=== PATIENT | female | born 1970 | race Caucasian/White ===

== ENCOUNTER → 2016-09-30 | Outpatient (REF) | payer OTHER | LOC: M LAB REF 09:30 | PROVIDERS: ATTEND Physician Assistant | DX: J02.9 Acute pharyngitis, unspecified (principal) ==

== ENCOUNTER → 2016-10-02 | Outpatient (REF) | payer OTHER ==
[2016-10-02 12:48] LABS: BASO % 0.4 % (0.0-1.0); EOS % 0.6 % (0.0-3.0); LARGE UNSTAINED CELL # 0.1 K/mm3 (0.0-0.4); LARGE UNSTAINED CELL % 1.4 % (0.0-4.0); LYMPH % 26.6 % (24.0-44.0); MEAN CORPUSCULAR HEMOGLOBIN 32.1 pg (27.0-33.0); MEAN CORPUSCULAR HGB CONC 34.7 g/dl (32.0-36.5); MEAN CORPUSCULAR VOLUME 92.4 fl (80.0-96.0); MONO # 0.7 K/mm3 (0.0-0.8); NEUTROPHILS # 4.3 K/mm3 (1.8-7.7); NEUTROPHILS % 60.9 % (36.0-66.0); PLATELET COUNT, AUTOMATED 218 k/mm3 (150-450); RED CELL DISTRIBUTION WIDTH 12.5 % (11.5-14.5)
== END ==
LOC: M LABDRWAD 12:18
PROVIDERS: ATTEND Physician Assistant
DX: J02.9 Acute pharyngitis, unspecified (principal)

== ENCOUNTER 2018-03-18 04:58 | Emergency (ER) | payer OTHER | END 2018-03-18 07:32 | disposition home or self-care (01) | LOC: M ED 04:58 | DX: M79.661 Pain in right lower leg (principal); I10 Essential (primary) hypertension; Z79.899 Other long term (current) drug therapy; Z91.018 Allergy to other foods | CPT/HCPCS: 73564 ==

== ENCOUNTER 2018-10-19 14:27 | Emergency (ER) | payer OTHER ==
[~2018-10-19] VITALS: Ht 167.6 cm; Wt 90.0 kg
[~2018-10-19 14:27] MED LIST: IBUP1TAB7 PO; LISINOPRIL-HCTZ PO; MOTR200T44 PO; POTA20TA6; TUMERIC; VITA-122 PO
[2018-10-19] MEDS ORDERED: ZANT150T40 PO (14:47)
[2018-10-19] MEDS ORDERED: NS 1,000 ML IV ONE (15:15)
[2018-10-19] MEDS ORDERED: ONDANSETRON 4MG/2ML VIAL (J2405) IV ONE (15:15)
[2018-10-19 15:17] LABS: BASO % 0.5 % (0.0-1.0); EOS # 0.1 10^3/uL (0.0-0.50); EOS % 1.1 % (0.0-3.0); HEMATOCRIT 36.2 % (36.0-47.0); HEMOGLOBIN 12.1 g/dl (12.0-15.5); LYMPH # 3.1 10^3/uL (1.5-4.5); LYMPH % 48.2 % (24.0-44.0); MEAN CORPUSCULAR HEMOGLOBIN 30.3 pg (27.0-33.0); MEAN CORPUSCULAR HGB CONC 33.4 g/dl (32.0-36.5); MEAN CORPUSCULAR VOLUME 90.7 fl (80.0-96.0); MONO # 0.6 10^3/uL (0.0-0.8); MONO % 8.7 % (0.0-5.0); NEUTROPHILS # 2.7 10^3/uL (1.8-7.7); NEUTROPHILS % 41.3 % (36.0-66.0); PLATELET COUNT, AUTOMATED 242 10^3/uL (150-450); RED BLOOD COUNT 3.99 10^6/uL (4.00-5.40); WHITE BLOOD COUNT 6.5 10^3/uL (4.0-10.0)
[2018-10-19 15:28] LABS: ALBUMIN 4.1 GM/DL (3.2-5.2); ALT/SGPT 17 U/L (12-78); BILIRUBIN,DIRECT 0.1 MG/DL (0.0-0.2); BILIRUBIN,TOTAL 0.4 MG/DL (0.2-1.0); BLOOD UREA NITROGEN 9 MG/DL (7-18); CALCIUM LEVEL 9.5 MG/DL (8.5-10.1); CARBON DIOXIDE LEVEL 30 MEQ/L (21-32); CHLORIDE LEVEL 99 MEQ/L (98-107); CREATININE FOR GFR 0.66 MG/DL (0.55-1.30); GLOMERULAR FILTRATION RATE > 60.0 (>58); GLUCOSE, FASTING 99 MG/DL (70-100); LIPASE 110 U/L (73-393); POTASSIUM SERUM 4.2 MEQ/L (3.5-5.1); SODIUM LEVEL 137 MEQ/L (136-145); TOTAL PROTEIN 8.2 GM/DL (6.4-8.2)
--- NOTE | 2018-10-19 15:46 | REP ---
Clinical: Right flank pain. Technique: Axial noncontrast images from the lung bases to the pubic symphysis eighth coronal and sagittal re-formations. Comparison: None. Findings: Evaluation of the urinary check system demonstrates 9 cm left renal hypodensity likely representing cyst. The kidneys/ureters and bladder are otherwise normal in appearance for noncontrast evaluation. There is no evidence for hydroureteronephrosis, perinephric stranding, intrarenal or obstructing ureteral calculi. Liver, spleen, pancreas, and bilateral adrenal glands are normal for noncontrast evaluation. Evidence of prior cholecystectomy. The enteric system is without obstruction or acute inflammatory process. Scattered sigmoid diverticula noted without acute diverticulitis. Normal terminal ileum and appendix identified in the right lower quadrant without evidence for acute appendicitis. Pelvis demonstrates enlarged heterogeneous myomatous uterus. The bladder is grossly unremarkable. No pelvic fluid or ascites. No free air. No adenopathy. Lung bases are clear. Musculoskeletal structures are intact. Impression: 1. 9 cm left renal hypodensity likely representing cyst. No further urinary tract pathology is appreciated. 2. Enlarged heterogeneous myomatous uterus. 3. Scattered sigmoid diverticula without acute diverticulitis. 4. No further acute abdominopelvic pathology appreciated. Electronically Signed by Gray Casey MD 10/19/2018 03:37 P
[2018-10-19] MEDS ORDERED: KETOROLAC 30 MG/ML VIAL (J1885) IV ONE (16:00)
[2018-10-19 16:09] LABS: CK-MB VALUE MASS < 1.0 NG/ML (<3.6); CPK CREATINE PHOSPHOKINASE 81 U/L (26-192); MB/CK RELATIVE INDEX 1.23 (< OR =4); TROPONIN I < 0.02 NG/ML (< 0.10)
--- NOTE | 2018-10-19 16:52 | ECGEPIP ---
[facility] - ED Test Date: 2018-10-19 Pat Name: WES ALVARADO Department: Room: - Gender: Female Medical Oncology Physician: ct : 1970 Requested By: ASIA Serrato PA-C Order Number: [id number] Reading MD: Cecilia Zhang Measurements Intervals [place] Rate: 66 P: 46 MS: 199 QRS: QRSD: 102 T: 3 QT: 438 QTc: 461 Interpretive Statements SINUS RHYTHM INCOMPLETE RIGHT BUNDLE BRANCH BLOCK NONSPECIFIC T-WAVE ABNORMALITY No prior Electronically Signed on 10-19-2018 16:51:38 EDT by Cecilia Zhang
[2018-10-19 18:29] VITALS: BP 130/79
[2018-10-19 18:38] LABS: CK-MB VALUE MASS < 1.0 NG/ML (<3.6); CPK CREATINE PHOSPHOKINASE 67 U/L (26-192); MB/CK RELATIVE INDEX 1.49 (< OR =4); TROPONIN I < 0.02 NG/ML (< 0.10)
--- NOTE | 2018-10-21 13:42 | ED PDOC ---
Post-Departure Follow-Up snehal carreno faxed formal report of ct abd/p for fu Fatoumata Hull MD Oct 21, 2018 13:42
== END 2018-10-19 18:54 | disposition home or self-care (01) ==
LOC: M ED 14:27
DX: N85.2 Hypertrophy of uterus (principal); N28.1 Cyst of kidney, acquired; K57.30 Diverticulosis of large intestine without perforation or abscess without bleeding; I10 Essential (primary) hypertension; R32 Unspecified urinary incontinence; K44.9 Diaphragmatic hernia without obstruction or gangrene; K22.8 Other specified diseases of esophagus; Z91.018 Allergy to other foods; Z79.899 Other long term (current) drug therapy
CPT/HCPCS: 74176; 80048; 80076; 81001; 82550; 82553; 83690; 84484; 85025; 93005; 96361; 96374; 96375; 99284; J1885; J2405

== ENCOUNTER → 2018-12-31 | Outpatient (CLI) | payer OTHER ==
[~2018-12-31] MED LIST changes: +ZANT150T40 PO
--- NOTE | 2019-01-01 07:33 | REP ---
PELVIC ULTRASOUND: Real-time sonographic evaluation of the pelvis is performed utilizing transabdominal technique. The bladder measures 5.5 x 4.1 cm. The uterus is enlarged 13.0 x 7.2 x 9.9 cm. Echotexture diffusely is heterogenous. There are multiple fibroids in the myometrium. The largest are in the fundus in the midline 3.4 x 4.0 x 3.8 cm and in the right fundus 6.5 x 4.8 x 5.9 cm. The endometrial thickness is 7 mm. No endometrial fluid collection is seen. Ovaries are normal in size and echotexture right ovary measuring 3.4 x 1.2 x 2.4 cm and the left ovary 4.1 x 2.1 x 2.2 cm. There is no adnexal mass or free fluid. There is no evidence of ovarian torsion with duplex Doppler evaluation. IMPRESSION: Enlarged fibroid uterus. The largest fibroids are in the fundus, one in the midline measuring 4 cm maximally and the other on the right within the fundus 6.5 cm in maximum diameter. Endometrial thickness 7 mm. Electronically Signed by Manolo Morales MD 01/02/2019 07:58 A
== END ==
LOC: M RAD 17:00
PROVIDERS: ATTEND Obstetrics & Gynecology
DX: D25.9 Leiomyoma of uterus, unspecified (principal)

== ENCOUNTER → 2019-02-07 | Outpatient (REF) | payer OTHER | LOC: M LAB REF 15:23 | PROVIDERS: ATTEND Specialist | DX: H60.541 Acute eczematoid otitis externa, right ear (principal) ==

== ENCOUNTER 2019-04-09 05:35 | Day surgery (SDC) | payer OTHER ==
[~2019-04-09] VITALS: Ht 167.6 cm; Wt 93.6 kg
[2019-04-09] VITALS (9 sets, daily range): BP systolic 124–142; BP diastolic 58–88
[~2019-04-09 05:35] MED LIST changes: +D-3-50003 PO; +LISI20TA20 PO; +MULTTAB86 PO; +PEPC40TA12 PO; -POTA20TA6; +POTA20TA6 PO; -TUMERIC; +TUMERIC PO
[2019-04-09] MEDS ORDERED: ceFAZolin SOD 2 GM in IV 1 EA IV ONE (06:00)
[2019-04-09] MEDS ORDERED: LR 1,000 ML IV ONE (06:00)
[2019-04-09 06:03] LABS: HEMATOCRIT 39.1 % (36.0-47.0); HEMOGLOBIN 12.7 g/dl (12.0-15.5); MEAN CORPUSCULAR HGB CONC 32.5 g/dl (32.0-36.5); MEAN CORPUSCULAR VOLUME 92.4 fl (80.0-96.0); PLATELET COUNT, AUTOMATED 245 10^3/uL (150-450); RED BLOOD COUNT 4.23 10^6/uL (4.00-5.40); WHITE BLOOD COUNT 6.6 10^3/uL (4.0-10.0)
[2019-04-09] MEDS ORDERED: HYDROmorphone HCL 2 MG/ML 1ML VIAL (J1170) As Ordered ONE (07:01)
[2019-04-09] MEDS ORDERED: KETOROLAC 60 MG/2 ML VIAL (J1885) As Ordered ONE (07:01)
[2019-04-09] MEDS ORDERED: dexameTHASONE 4 MG/ML 1ML VIAL (J1100) As Ordered ONE (07:01)
[2019-04-09] MEDS ORDERED: ACETAMINOPHEN 1000MG 100ML IV BTL (OFIRMEV) (J0131 PER 10MG) As Ordered ONE (07:01)
[2019-04-09] MEDS ORDERED: PROPOFOL 200 MG/20 ML VIAL As Ordered ONE (07:01)
[2019-04-09] MEDS ORDERED: ONDANSETRON 4MG/2ML VIAL (J2405) As Ordered ONE (07:01)
[2019-04-09] MEDS ORDERED: LIDOCAINE 2% INJ 100 MG/5 ML SDV (FOR ANES.) As Ordered ONE (07:01)
[2019-04-09] MEDS ORDERED: ROCURONIUM BROMIDE 50 MG/5 ML VIAL As Ordered ONE (07:01)
[2019-04-09] MEDS ORDERED: MIDAZOLAM INJ 2 MG/2 ML VIAL (J2250) As Ordered ONE (07:02)
[2019-04-09] MEDS ORDERED: fentaNYL 100 MCG/2 ML INJECTION (J3010) As Ordered ONE (07:02)
[2019-04-09] MEDS ORDERED: LIDOCAINE W/EPINEPHRINE 1% 20ML VIAL As Ordered ONE (07:09)
[2019-04-09] MEDS ORDERED: METHYLENE BLUE 0.5% (5MG/ML) 10 ML AMP (PROVAYBLUE)(Q9968 PER 1MG) As Ordered ONE (07:09)
[2019-04-09] MEDS ORDERED: BUPIVACAINE HCL 0.25% 30 ML VIAL As Ordered ONE (07:09)
[2019-04-09] MEDS ORDERED: SUGAMMADEX SODIUM 500 MG/5 ML VIAL (BRIDION) As Ordered ONE (07:09)
[2019-04-09] MEDS ORDERED: ESMOLOL INJ 100MG/10ML VIAL As Ordered ONE (07:52)
[2019-04-09] MEDS ORDERED: LABETALOL HCL 100 MG/20 ML VIAL As Ordered ONE (09:18)
[2019-04-09] MEDS ORDERED: fentaNYL 100 MCG/2 ML INJECTION (J3010) IV PRN (11:30)
[2019-04-09] MEDS ORDERED: METOCLOPRAMIDE INJ 10MG/2ML VIAL (J2765) IV PRN (11:30)
[2019-04-09] MEDS ORDERED: MORPHINE 4 MG/ML 1ML VIAL/SYRINGE (J2270) IV PRN (11:30)
[2019-04-09] MEDS ORDERED: ONDANSETRON 4MG/2ML VIAL (J2405) IV PRN (11:30)
[2019-04-09] MEDS ORDERED: LR 1,000 ML IV SCH ×2 (11:30)
[2019-04-09] MEDS ORDERED: PROMETHAZINE INJ 25 MG/ML VIAL (J2550) IV PRN (11:30)
[2019-04-09] MEDS ORDERED: HYDROMORPHONE HCL 0.5 MG/ 0.5 ML SYRINGE (J1170 PER 1) IV PRN (11:30)
[2019-04-09] MEDS ORDERED: oxyCODONE 5MG TAB PO PRN (11:30)
[2019-04-09] MEDS ORDERED: PERCOCET 5MG/325MG TAB PO PRN (11:30)
[2019-04-09] MEDS: KETOROLAC 30 MG/ML VIAL (J1885) IV SCH ×2 (17:09→23:18)
[2019-04-10] VITALS: BP 137/72
[2019-04-10 04:00] VITALS: BP 122/68
[2019-04-10] MEDS: KETOROLAC 30 MG/ML VIAL (J1885) IV SCH ×2 (05:19→11:03)
[2019-04-10 06:39] LABS: HEMATOCRIT 32.6 % (36.0-47.0); MEAN CORPUSCULAR HEMOGLOBIN 30.5 pg (27.0-33.0); MEAN CORPUSCULAR HGB CONC 32.8 g/dl (32.0-36.5); MEAN CORPUSCULAR VOLUME 92.9 fl (80.0-96.0); PLATELET COUNT, AUTOMATED 207 10^3/uL (150-450); RED BLOOD COUNT 3.51 10^6/uL (4.00-5.40); WHITE BLOOD COUNT 13.9 10^3/uL (4.0-10.0)
[2019-04-10 06:41] LABS: HEMOGLOBIN 10.7 g/dl (12.0-15.5)
[2019-04-10 07:50] VITALS: BP 133/75
[2019-04-10 08:01] VITALS: BP 133/75
[2019-04-10] MEDS: PERCOCET 5MG/325MG TAB PO PRN ×2 (08:02→13:05)
[2019-04-10] MEDS ORDERED: hydroCHLOROthiazide 25 MG TAB PO SCH (09:00)
[2019-04-10] MEDS ORDERED: lisinopriL 20 MG TAB PO SCH (09:00)
--- NOTE | 2019-04-10 10:39 | ROOPDOC ---
[facility] Report Of Operation Report of Operation DATE OF PROCEDURE: 04/09/2019 PREOPERATIVE DIAGNOSES: 1. Fibroid uterus. 2. Abnormal uterine bleeding. 3. Genuine stress urinary incontinence POSTOPERATIVE DIAGNOSES: 1. Fibroid uterus. 2. Abnormal uterine bleeding. 3. Genuine stress urinary incontinence PROCEDURES PERFORMED: 1. Robotic assisted laparoscopic hysterectomy. 2. Bilateral salpingectomy. 3. Tension-free transvaginal tape obturator approach 3. Cystoscopy. SURGEON: Aubrie Ornelas MD DIRECTOR AUDIENCE MARKETING: TIM Hendricks M.D. ANESTHESIA: General endotracheal anesthesia. ESTIMATED BLOOD LOSS: 425 mL. INTRAVENOUS FLUIDS: 1300 mL of Lactated Ringer's solution. URINE OUTPUT: 200 mL. PREOPERATIVE ANTIBIOTICS: 2 grams of Ancef. OPERATIVE FINDINGS: Patient with markedly enlarged fibroid uterus. Normal appearing bilateral adnexa. Cystoscopic findings show normal bladder mucosa, bilateral jets were observed, no foreign objects were seen. DESCRIPTION OF OPERATION: After informed consent was obtained and written consent was reviewed, the patient brought to the operating room where she was placed under general endotracheal anesthesia. She was then placed in lithotomy position and was prepped and draped in normal sterile fashion. A time-out in the operating room was performed identifying the patient, procedure to be performed as well as drug allergies. Speculum was then placed revealing the cervix. Anterior posterior aspects of the cervix stitched with 0 Vicryl. An extra large VCare uterine manipulator was advanced through the cervical os for means to manipulate the uterus. 7 mL of air was then insufflated. The cervical cap as well as vaginal sleeve was advanced down into the vagina. A Lester catheter was then placed set to gravity. Gloves changed. Attention was turned to the patient's abdomen where a Veress needle was placed in the umbilicus and a pneumoperitoneum was obtained with CO2 gas. Supraumbilical area was then infused with 0.25% Marcaine. An incision was made in this area. An 8 mm trocar sleeve was advanced through this incision. Laparoscope was replaced revealing intra-abdominal placement. Three additional port sites were placed, one to the patient's right side, two to the patient's left of the umbilicus. Each one of these areas were infused with 0.25% Marcaine. An incision was made in each one of these areas. 8 mm trocars and sleeves advanced through each one of these incisions under direct visualization. The abdomen was then surveyed with the above-noted findings. Next, the da Osvaldo was docked utilizing camera arm and two operative arms. Utilizing a vessel sealer the mesosalpinx, bilateral fallopian tubes were cauterized and ligated with good hemostasis noted. This was performed up to the level of the uterus. The round ligaments were ligated bilaterally with good hemostasis noted. The anterior lip of the broad ligaments were then , cauterized and ligated creating a bladder flap. The remainder of the broad cardinal ligaments were then cauterized and ligated with good hemostasis noted. The uterine vessels were then skeletonized bilaterally and cauterized and ligated with good hemostasis noted. Next, anterior and posterior colpotomies were made using monopolar scissors. The da Osvaldo was then undocked and the uterus is morcellated vaginally. Transvaginal tape obturator approach: Allis clamps were used to grasp the vaginal mucosa approximately 1 cm distal to the urethral meatus a second clamp was placed 1 cm distal to the first. A vertical incision was made with a scalpel. Using Metzenbaum scissors, this was further dissected sharply in periurethral space bilaterally. Wing guide opening. TVTO device was then guided along the wing guide and passed out to the obturator foramen and exited through the previously marked area in the groin. The trocar was then removed. In similar fashion was performed onthe opposite side. The TVT was then adjusted over a Vy clamp. Sleeves were then removed. Excessive mesh was trimmed. The vaginal tissue was then irrigated and was closed with #2-0 Vicryl in a running fashion. Cystoscopy was then placed transurethrally inspecting the bladder showing normal bladder mucosa with bilateral urinary jets. The da Osvaldo was re-docked and the vaginal cuff was then closed using the #2-0 V-Loc system in a running fashion. Surgical sites were irrigated and suctioned. Trung was applied over the surgical field. The pneumoperitoneum was then released. Gloves were changed and attention was turned to the patient's abdomen where all four port sites were closed with #4-0 Monocryl and dressed with DERMABOND. The patient was then taken out of lithotomy position, was awakened from general anesthesia and taken to recovery in stable condition. Counts were correct. Ana M Malcolm my surgical instrument technician, played an essential role during the surgery. She assisted with port placement, tissue retraction and identification, and wound closure. Dr. Galindo assisted with morcellation of the uterus and placement of the TVT. AUBRIE ORNELAS MD. Apr 09, 2019 14:32
[2019-04-10 12:00] VITALS: BP 120/60
== END 2019-04-10 13:46 | disposition home or self-care (01) ==
LOC: M SDC 05:35 → M PED 12:55 → M SDC 04-10 13:46
PROVIDERS: ATTEND Obstetrics & Gynecology
DX: D25.9 Leiomyoma of uterus, unspecified (principal); N93.9 Abnormal uterine and vaginal bleeding, unspecified; N39.3 Stress incontinence (female) (male); N80.0 Endometriosis of uterus; I10 Essential (primary) hypertension; N28.1 Cyst of kidney, acquired; K57.30 Diverticulosis of large intestine without perforation or abscess without bleeding; K44.9 Diaphragmatic hernia without obstruction or gangrene; K21.9 Gastro-esophageal reflux disease without esophagitis; M17.0 Bilateral primary osteoarthritis of knee; Z91.018 Allergy to other foods; Z91.040 Latex allergy status; Z79.899 Other long term (current) drug therapy; Z98.51 Tubal ligation status
CPT/HCPCS: 36415; 57288; 58573; 85027; 86850; 86900; 86901; 88307; 96374; 96375; C1771; J0131; J0690; J1100; J1170; J1885; J2250; J2270; J2405; J3010

== ENCOUNTER → 2019-08-01 | Outpatient (CLI) | payer OTHER ==
[2019-08-01 15:00] LABS: BLOOD UREA NITROGEN 10 MG/DL (7-18); CALCIUM LEVEL 8.9 MG/DL (8.5-10.1); CARBON DIOXIDE LEVEL 31 MEQ/L (21-32); CHLORIDE LEVEL 102 MEQ/L (98-107); CREATININE FOR GFR 0.62 MG/DL (0.55-1.30); GLOMERULAR FILTRATION RATE > 60.0 (>51); GLUCOSE, FASTING 103 MG/DL (70-100); POTASSIUM SERUM 3.3 MEQ/L (3.5-5.1); SODIUM LEVEL 139 MEQ/L (136-145)
== END ==
LOC: M LAB 14:12
PROVIDERS: ATTEND Nurse Practitioner Family
DX: I10 Essential (primary) hypertension (principal)

== ENCOUNTER 2019-09-27 22:41 | Emergency (ER) | payer OTHER ==
[~2019-09-27] VITALS: Ht 167.6 cm; Wt 90.9 kg
[2019-09-27] MEDS ORDERED: ASPIRIN 325 MG TAB PO ONE (23:00)
[2019-09-27 23:04] LABS: BASO % 0.4 % (0.0-1.0); EOS # 0.2 10^3/uL (0.0-0.5); EOS % 2.1 % (0.0-3.0); HEMATOCRIT 35.1 % (36.0-47.0); HEMOGLOBIN 11.7 g/dl (12.0-15.5); LYMPH # 3.6 10^3/uL (1.5-5.0); LYMPH % 45.3 % (24.0-44.0); MEAN CORPUSCULAR HEMOGLOBIN 30.3 pg (27.0-33.0); MEAN CORPUSCULAR HGB CONC 33.3 g/dl (32.0-36.5); MEAN CORPUSCULAR VOLUME 90.9 fl (80.0-96.0); MONO # 0.6 10^3/uL (0.0-0.8); MONO % 7.7 % (0.0-5.0); NEUTROPHILS # 3.5 10^3/uL (1.5-8.5); NEUTROPHILS % 44.2 % (36.0-66.0); PLATELET COUNT, AUTOMATED 238 10^3/uL (150-450); RED BLOOD COUNT 3.86 10^6/uL (4.00-5.40); WHITE BLOOD COUNT 7.9 10^3/uL (4.0-10.0)
[2019-09-27 23:15] LABS: INR 0.97; PROTHROMBIN TIME 12.6 SECONDS (11.8-14.0)
[2019-09-27 23:16] LABS: PARTIAL THROMBOPLASTIN TIME 28.5 SECONDS (25.0-38.4)
[2019-09-27 23:29] LABS: BLOOD UREA NITROGEN 15 MG/DL (7-18); CALCIUM LEVEL 8.5 MG/DL (8.5-10.1); CARBON DIOXIDE LEVEL 29 MEQ/L (21-32); CHLORIDE LEVEL 104 MEQ/L (98-107); CK-MB VALUE MASS < 1.0 NG/ML (<3.6); CPK CREATINE PHOSPHOKINASE 96 U/L (26-192); CREATININE FOR GFR 0.68 MG/DL (0.55-1.30); GLOMERULAR FILTRATION RATE > 60.0 (>51); GLUCOSE, FASTING 101 MG/DL (70-100); MB/CK RELATIVE INDEX 1.04 (< OR =4); POTASSIUM SERUM 3.3 MEQ/L (3.5-5.1); SODIUM LEVEL 141 MEQ/L (136-145); TROPONIN I < 0.02 NG/ML (< 0.10)
[2019-09-27] MEDS ORDERED: ISOVUE-370 76% 100ML VIAL As Ordered ONE (23:36)
[2019-09-27] MEDS ORDERED: NS 1,000 ML IV ONE (23:45)
--- NOTE | 2019-09-28 00:13 | REPVR ---
PROCEDURE INFORMATION: Exam: CT Angiography Chest With Contrast Exam date and time: 09/27/2019 11:42 PM Age: 48 years old Clinical indication: Chest pain; Type not specified; Additional info: Cp TECHNIQUE: Imaging protocol: Computed tomographic angiography of the chest with intravenous contrast. 3D rendering: MIP and/or 3D reconstructed images were created by the technologist. Radiation optimization: All CT scans at this facility use at least one of these dose optimization techniques: automated exposure control; mA and/or kV adjustment per patient size (includes targeted exams where dose is matched to clinical indication); or iterative reconstruction. Contrast material: ISOVUE 370; Contrast volume: 75 ml; Contrast route: IV; COMPARISON: SR - CT ABD PELVIS W/O CONTRAST 10/19/2018 3:14:20 PM FINDINGS: Limitations: Examination is limited by motion artifact. Pulmonary arteries: Normal. No pulmonary emboli. Aorta: Unremarkable. No aortic aneurysm. No aortic dissection. Tracheobronchial tree: Visualized airway is unremarkable. Lungs: Unremarkable. No consolidation. No masses. Pleural space: Unremarkable. No pneumothorax. No pleural effusion. Heart: Unremarkable. No cardiomegaly. No pericardial effusion. Lymph nodes: Unremarkable. No enlarged lymph nodes. Liver: Several hypodense lesions in the liver measuring up to 11 mm. Gallbladder and bile ducts: Status post cholecystectomy. No biliary ductal dilatation. Kidneys and ureters: Cyst in the upper pole of the left kidney measuring 8.8 cm. Cyst is not fully imaged on this study. Bones/joints: Unremarkable. No acute fracture. Soft tissues: Unremarkable. IMPRESSION: 1. Negative for pulmonary embolism. 2. Benign-appearing cyst in the upper pole of the left kidney. No follow-up is necessary. 3. Several hypodense lesions in the liver. Lesions were seen previously. No further follow-up is recommended. Electronically signed by: Wili Celeste On 09/28/2019 00:12:41 AM
[2019-09-28 04:01] LABS: CK-MB VALUE MASS < 1.0 NG/ML (<3.6); CPK CREATINE PHOSPHOKINASE 84 U/L (26-192); MB/CK RELATIVE INDEX 1.19 (< OR =4); TROPONIN I < 0.02 NG/ML (< 0.10)
[2019-09-28 04:15] VITALS: BP 143/78
--- NOTE | 2019-09-28 06:32 | ECGEPIP ---
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
--- NOTE | 2019-09-28 06:34 | ECGEPIP ---
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
== END 2019-09-28 04:16 | disposition home or self-care (01) ==
LOC: M ED 22:41
DX: R07.89 Other chest pain (principal); I45.19 Other right bundle-branch block; K76.89 Other specified diseases of liver; I10 Essential (primary) hypertension; K21.9 Gastro-esophageal reflux disease without esophagitis; Z79.899 Other long term (current) drug therapy; Z91.018 Allergy to other foods; Z91.040 Latex allergy status
CPT/HCPCS: 71275; 80048; 82550; 82553; 84484; 85025; 85610; 85730; 93005; 93041; 94760; 96360; 99285; Q9967

== ENCOUNTER 2019-10-29 22:53 | Emergency (ER) | payer OTHER ==
[~2019-10-29] VITALS: Ht 170.2 cm; Wt 90.9 kg
--- NOTE | 2019-10-29 23:23 | REPVR ---
PROCEDURE INFORMATION: Exam: CT Head Without Contrast Exam date and time: 10/29/2019 11:07 PM Age: 49 years old Clinical indication: Dizziness TECHNIQUE: Imaging protocol: Computed tomography of the head without contrast. Radiation optimization: All CT scans at this facility use at least one of these dose optimization techniques: automated exposure control; mA and/or kV adjustment per patient size (includes targeted exams where dose is matched to clinical indication); or iterative reconstruction. COMPARISON: No relevant prior studies available. FINDINGS: Brain: There is no evidence of infarct, guillory-white matter differentiation is preserved. There is no hemorrhage or extra-axial collection. There is no mass. Ventricles: There is no hydrocephalus. Bones/joints: Unremarkable. No acute fracture. Sinuses: Visualized sinuses are unremarkable. No fluid levels. Mastoid air cells: Visualized mastoid air cells are well aerated. Soft tissues: Unremarkable. IMPRESSION: No intracranial lesion or injury. Electronically signed by: Jb Chris On 10/29/2019 23:23:17 PM
[2019-10-30 00:07] LABS: HEMATOCRIT 36.1 % (36.0-47.0); HEMOGLOBIN 12.1 g/dl (12.0-15.5); MEAN CORPUSCULAR HEMOGLOBIN 30.8 pg (27.0-33.0); MEAN CORPUSCULAR HGB CONC 33.5 g/dl (32.0-36.5); MEAN CORPUSCULAR VOLUME 91.9 fl (80.0-96.0); PLATELET COUNT, AUTOMATED 225 10^3/uL (150-450); RED BLOOD COUNT 3.93 10^6/uL (4.00-5.40); WHITE BLOOD COUNT 8.4 10^3/uL (4.0-10.0)
--- NOTE | 2019-10-30 00:52 | ECGEPIP ---
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
[2019-10-30 01:50] LABS: BLOOD UREA NITROGEN 13 MG/DL (7-18); CALCIUM LEVEL 9.2 MG/DL (8.5-10.1); CARBON DIOXIDE LEVEL 32 MEQ/L (21-32); CHLORIDE LEVEL 104 MEQ/L (98-107); CK-MB VALUE MASS < 1.0 NG/ML (<3.6); CPK CREATINE PHOSPHOKINASE 86 U/L (26-192); CREATININE FOR GFR 0.63 MG/DL (0.55-1.30); GLOMERULAR FILTRATION RATE > 60.0 (>51); GLUCOSE, FASTING 103 MG/DL (70-100); MB/CK RELATIVE INDEX 1.16 (< OR =4); POTASSIUM SERUM 2.8 MEQ/L (3.5-5.1); SODIUM LEVEL 142 MEQ/L (136-145); TROPONIN I < 0.02 NG/ML (< 0.10)
[2019-10-30 02:03] LABS: BILIRUBIN,DIRECT 0.1 MG/DL (0.0-0.2); BILIRUBIN,TOTAL 0.4 MG/DL (0.2-1.0)
[2019-10-30] MEDS ORDERED: POTASSIUM CHLORIDE 10 MEQ SR TABLET PO ONE (02:15)
[2019-10-30] MEDS ORDERED: HOLTER MONITOR XX (02:16)
[2019-10-30 02:30] VITALS: BP 139/77
== END 2019-10-30 02:39 | disposition home or self-care (01) ==
LOC: M ED 22:53
DX: R55 Syncope and collapse (principal); I45.19 Other right bundle-branch block; I10 Essential (primary) hypertension; K21.9 Gastro-esophageal reflux disease without esophagitis; N28.1 Cyst of kidney, acquired; Z79.899 Other long term (current) drug therapy; Z91.018 Allergy to other foods; Z91.040 Latex allergy status

== ENCOUNTER 2019-11-02 09:35 | Emergency (ER) | payer OTHER ==
[~2019-11-02] VITALS: Ht 167.6 cm; Wt 90.9 kg
[~2019-11-02 09:35] MED LIST changes: +HOLTER MONITOR XX
[2019-11-02 10:18] LABS: BASO % 0.3 % (0.0-1.0); EOS # 0.1 10^3/uL (0.0-0.5); EOS % 1.4 % (0.0-3.0); HEMATOCRIT 36.3 % (36.0-47.0); HEMOGLOBIN 12.2 g/dl (12.0-15.5); MEAN CORPUSCULAR HEMOGLOBIN 30.7 pg (27.0-33.0); MEAN CORPUSCULAR HGB CONC 33.6 g/dl (32.0-36.5); MEAN CORPUSCULAR VOLUME 91.2 fl (80.0-96.0); MONO # 0.5 10^3/uL (0.0-0.8); NEUTROPHILS # 3.2 10^3/uL (1.5-8.5); NEUTROPHILS % 55.1 % (36.0-66.0); PLATELET COUNT, AUTOMATED 228 10^3/uL (150-450); RED BLOOD COUNT 3.98 10^6/uL (4.00-5.40); WHITE BLOOD COUNT 5.9 10^3/uL (4.0-10.0)
[2019-11-02 10:33] LABS: BLOOD UREA NITROGEN 11 MG/DL (7-18); CALCIUM LEVEL 9.2 MG/DL (8.5-10.1); CARBON DIOXIDE LEVEL 30 MEQ/L (21-32); CHLORIDE LEVEL 105 MEQ/L (98-107); CREATININE FOR GFR 0.66 MG/DL (0.55-1.30); GLOMERULAR FILTRATION RATE > 60.0 (>51); GLUCOSE, FASTING 111 MG/DL (70-100); POTASSIUM SERUM 3.7 MEQ/L (3.5-5.1); SODIUM LEVEL 141 MEQ/L (136-145)
[2019-11-02 11:15] LABS: CK-MB VALUE MASS < 1.0 NG/ML (<3.6); CPK CREATINE PHOSPHOKINASE 73 U/L (26-192); MB/CK RELATIVE INDEX 1.37 (< OR =4); TROPONIN I < 0.02 NG/ML (< 0.10)
[2019-11-02 12:21] VITALS: BP 144/96
--- NOTE | 2019-11-02 15:24 | REP ---
CHEST PA AND LATERAL: 11/02/2019. CLINICAL HISTORY: Dizziness, chest discomfort. COMPARISON: CT angio chest 09/27/2019. FINDINGS: Lungs are well inflated and without infiltrate, effusion, atelectasis, or mass. The heart, mediastinal and hilar contours are normal. Aorta and airway are intact. There is no vascular redistribution or pulmonary edema. Visualized bones unremarkable. No free air under the diaphragm. IMPRESSION: 1. Negative chest. No change in appearance from the prior CT angiogram, 09/27/2019. Electronically Signed by Jabier Moy MD 11/02/2019 07:07 P
== END 2019-11-02 12:24 | disposition home or self-care (01) ==
LOC: M ED 09:35
DX: R42 Dizziness and giddiness (principal); I10 Essential (primary) hypertension; K57.92 Diverticulitis of intestine, part unspecified, without perforation or abscess without bleeding; R12 Heartburn; Z79.899 Other long term (current) drug therapy; Z91.018 Allergy to other foods; Z91.040 Latex allergy status

== ENCOUNTER → 2020-03-11 | Outpatient (CLI) | payer SELFPAY | LOC: M LABSMTC 09:34 | PROVIDERS: ATTEND Pediatrics | DX: Z20.828 Contact with and (suspected) exposure to other viral communicable diseases (principal) ==

== ENCOUNTER → 2020-04-12 | Outpatient (CLI) | payer OTHER ==
--- NOTE | 2020-04-12 15:56 | REP ---
INDICATION: COUGH COMPARISON: 11/02/2019 TECHNIQUE: PA and lateral. FINDINGS: The mediastinum and cardiac silhouette are normal. The lung souza are clear and without acute consolidation, effusion, or pneumothorax. The skeletal structures are intact and normal. IMPRESSION: No acute cardiopulmonary process. <Electronically signed by Gray Casey > 04/12/20 [id number]
== END ==
LOC: M RAD 15:33
PROVIDERS: ATTEND Nurse Practitioner Adult Health
DX: R05 Cough (principal)

== ENCOUNTER → 2020-09-08 | Outpatient (REF) | LOC: M LABSMTC 09:36 | PROVIDERS: ATTEND Pediatrics | DX: Z20.822 Contact with and (suspected) exposure to COVID-19 (principal) ==

== ENCOUNTER → 2021-05-20 | Outpatient (REF) ==
[~2021-05-20] MED LIST changes: -LISI20TA20 PO; +LISI20TA37 PO; +POTA-151 PO; -POTA20TA6 PO
== END ==
LOC: M LABSMTC 10:11
PROVIDERS: ATTEND Family Medicine
DX: Z20.822 Contact with and (suspected) exposure to COVID-19 (principal)

== ENCOUNTER → 2021-06-29 | Outpatient (CLI) | payer OTHER | LOC: M WUC 15:34 | PROVIDERS: ATTEND Nurse Practitioner Adult Health | DX: R05.3 Chronic cough (principal) ==

== ENCOUNTER → 2022-03-07 | Outpatient (CLI) | payer BC ==
[2022-03-07 12:48] LABS: BASO % 0.5 % (0.0-1.0); EOS # 0.1 10^3/uL (0.0-0.5); EOS % 1.5 % (0.0-3.0); HEMATOCRIT 37.4 % (36.0-47.0); HEMOGLOBIN 12.2 g/dl (12.0-15.5); LYMPH % 44.5 % (24.0-44.0); MEAN CORPUSCULAR HEMOGLOBIN 30.3 pg (27.0-33.0); MEAN CORPUSCULAR HGB CONC 32.6 g/dl (32.0-36.5); MONO # 0.6 10^3/uL (0.0-0.8); NEUTROPHILS # 2.9 10^3/uL (1.5-8.5); NEUTROPHILS % 44.3 % (36.0-66.0); PLATELET COUNT, AUTOMATED 246 10^3/uL (150-450); RED BLOOD COUNT 4.02 10^6/uL (4.00-5.40); WHITE BLOOD COUNT 6.6 10^3/uL (4.0-10.0)
[2022-03-07 18:09] LABS: ALBUMIN 3.9 G/DL (3.2-5.2); ALT/SGPT 15 U/L (7.0-40); BILIRUBIN,TOTAL 0.4 MG/DL (0.3-1.2); BLOOD UREA NITROGEN 13 MG/DL (9-23); CALCIUM LEVEL 9.1 MG/DL (8.5-10.1); CARBON DIOXIDE LEVEL 30 MMOL/L (20-31); CHLORIDE LEVEL 101 MMOL/L (98-107); CHOLESTEROL LEVEL 215 MG/DL (<200); CHOLESTEROL RISK RATIO 3.17 (<5); CREATININE FOR GFR 0.61 MG/DL (0.55-1.30); GLOMERULAR FILTRATION RATE > 60.0 (>51); GLUCOSE, FASTING 92 MG/DL (60-100); HDL CHOLESTEROL 67.7 MG/DL (>40); LDL CHOLESTEROL 112.3 MG/DL (<100); NON-HDL-C 147 MG/DL; POTASSIUM SERUM 3.9 MMOL/L (3.5-5.1); SODIUM LEVEL 139 MMOL/L (136-145); TRIGLYCERIDES LEVEL 175 MG/DL (<150)
== END ==
LOC: M LAB 11:45
PROVIDERS: ATTEND Nurse Practitioner Adult Health
DX: E78.5 Hyperlipidemia, unspecified (principal); I10 Essential (primary) hypertension; K21.9 Gastro-esophageal reflux disease without esophagitis; E87.6 Hypokalemia

== ENCOUNTER → 2023-06-05 | Outpatient (CLI) | payer BC | LOC: M WHC 13:16 | PROVIDERS: ATTEND Nurse Practitioner Adult Health | DX: N95.0 Postmenopausal bleeding (principal); Z90.710 Acquired absence of both cervix and uterus; R14.0 Abdominal distension (gaseous) ==

== ENCOUNTER → 2023-10-17 | Outpatient (CLI) | payer BC ==
[2023-10-17 13:43] LABS: HEMATOCRIT 35.7 % (36.0-47.0); MEAN CORPUSCULAR HEMOGLOBIN 31.2 pg (27.0-33.0); MEAN CORPUSCULAR HGB CONC 33.6 g/dl (32.0-36.5); MEAN CORPUSCULAR VOLUME 92.7 fl (80.0-96.0); PLATELET COUNT, AUTOMATED 196 10^3/uL (150-450); RED BLOOD COUNT 3.85 10^6/uL (4.00-5.40); WHITE BLOOD COUNT 6.2 10^3/uL (4.0-10.0)
[2023-10-17 14:15] LABS: PERCENT SATURATION 26.8 % (13.2-45.0)
[2023-10-17 14:17] LABS: FERRITIN 56.7 NG/ML (7.3-270.7); FOLATE 6.68 NG/ML (>5.4)
== END ==
LOC: M LAB 13:14
PROVIDERS: ATTEND Nurse Practitioner Family
DX: R11.0 Nausea (principal); R13.10 Dysphagia, unspecified; D64.9 Anemia, unspecified; Z80.0 Family history of malignant neoplasm of digestive organs

== ENCOUNTER → 2023-10-22 | Outpatient (CLI) | payer BC ==
[2023-10-22 14:13] LABS: IMMUNOGLOBULIN A 232.4 MG/DL (40-350)
[2023-11-01 22:12] LABS: DEAMIDATED GLIADIN ABS, IgA < 1.0 U/mL (<15.0); DEAMIDATED GLIADIN ABS, IgG < 1.0 U/mL (<15.0); IMMUNOGLOBULIN A CELIAC 215 mg/dL (47-310); t-TRANSGLUTAMINASE(tTG) IgA < 1.0 U/mL (<15.0); t-TRANSGLUTAMINASE(tTG) IgG < 1.0 U/mL (<15.0)
== END ==
LOC: M LAB 13:10
PROVIDERS: ATTEND Nurse Practitioner Family
DX: R19.4 Change in bowel habit (principal); R14.0 Abdominal distension (gaseous)

== ENCOUNTER 2024-06-13 21:36 | Emergency (ER) | payer BC ==
[~2024-06-13] VITALS: Ht 167.6 cm; Wt 85.6 kg
[2024-06-13 22:29] LABS: BASO % 0.3 % (0.0-1.0); EOS # 0.1 10^3/uL (0.0-0.5); HEMATOCRIT 36.6 % (36.0-47.0); HEMOGLOBIN 12.2 g/dl (12.0-15.5); LYMPH # 3.3 10^3/uL (1.5-5.0); MEAN CORPUSCULAR HEMOGLOBIN 30.6 pg (27.0-33.0); MEAN CORPUSCULAR HGB CONC 33.3 g/dl (32.0-36.5); MEAN CORPUSCULAR VOLUME 91.7 fl (80.0-96.0); MONO # 0.5 10^3/uL (0.0-0.8); MONO % 7.5 % (2.0-8.0); NEUTROPHILS % 43.1 % (36.0-66.0); PLATELET COUNT, AUTOMATED 210 10^3/uL (150-450); RED BLOOD COUNT 3.99 10^6/uL (4.00-5.40); WHITE BLOOD COUNT 6.9 10^3/uL (4.0-10.0)
[2024-06-13 22:54] LABS: CK-MB VALUE MASS < 1.0 NG/ML (<3.6)
[2024-06-13 22:56] LABS: BLOOD UREA NITROGEN 20 MG/DL (9-23); CALCIUM LEVEL 9.6 MG/DL (8.5-10.1); CARBON DIOXIDE LEVEL 31 MMOL/L (20-31); CHLORIDE LEVEL 102 MMOL/L (98-107); CPK CREATINE PHOSPHOKINASE 85 U/L (34-145); CREATININE FOR GFR 0.53 MG/DL (0.55-1.30); GLOMERULAR FILTRATION RATE > 60.0 (>51); GLUCOSE, FASTING 97 MG/DL (60-100); MB/CK RELATIVE INDEX 1.17 (< OR =4); POTASSIUM SERUM 3.7 MMOL/L (3.5-5.1); SODIUM LEVEL 142 MMOL/L (136-145)
[2024-06-13 23:17] VITALS: BP 150/75
[2024-06-13] MEDS: ASPIRIN 325 MG TAB PO ONE (23:17)
[2024-06-13] MEDS: SUCRALFATE 1 GM TAB PO ONE (23:18)
[2024-06-14 00:14] LABS: CK-MB VALUE MASS < 1.0 NG/ML (<3.6)
[2024-06-14 00:16] LABS: CPK CREATINE PHOSPHOKINASE 82 U/L (34-145); MB/CK RELATIVE INDEX 1.21 (< OR =4)
[2024-06-14] MEDS ORDERED: CARA1TAB6 PO (00:19)
[2024-06-14 00:35] VITALS: BP 142/68; TEMP 97.8; O2SAT 96
== END 2024-06-14 00:43 | disposition home or self-care (01) ==
LOC: M ED 21:36
DX: I10 Essential (primary) hypertension (principal); K21.9 Gastro-esophageal reflux disease without esophagitis; Z79.899 Other long term (current) drug therapy; Z91.018 Allergy to other foods; Z88.8 Allergy status to other drugs, medicaments and biological substances

== ENCOUNTER → 2024-08-22 | Outpatient (CLI) | payer BC ==
[~2024-08-22] MED LIST changes: +CARA1TAB6 PO
[2024-08-22 15:28] LABS: BASO % 0.6 % (0.0-1.0); EOS # 0.2 10^3/uL (0.0-0.5); EOS % 3.5 % (0.0-3.0); HEMATOCRIT 36.7 % (36.0-47.0); HEMOGLOBIN 12.1 g/dl (12.0-15.5); LYMPH # 2.7 10^3/uL (1.5-5.0); MEAN CORPUSCULAR HEMOGLOBIN 30.6 pg (27.0-33.0); MEAN CORPUSCULAR VOLUME 92.9 fl (80.0-96.0); MONO # 0.4 10^3/uL (0.0-0.8); MONO % 7.7 % (2.0-8.0); NEUTROPHILS # 2.1 10^3/uL (1.5-8.5); PLATELET COUNT, AUTOMATED 207 10^3/uL (150-450); RED BLOOD COUNT 3.95 10^6/uL (4.00-5.40); WHITE BLOOD COUNT 5.4 10^3/uL (4.0-10.0)
[2024-08-22 16:03] LABS: ALBUMIN 3.8 G/DL (3.2-5.2); ALKALINE PHOSPHATASE 49 U/L (35-104); ALT/SGPT 17 U/L (7.0-40); AST/SGOT 12 U/L (<34); BILIRUBIN,TOTAL 0.3 MG/DL (0.3-1.2); BLOOD UREA NITROGEN 16 MG/DL (9-23); C REACTIVE PROTEIN QUANTITATIV < 0.50 MG/DL (<1.0); CALCIUM LEVEL 9.3 MG/DL (8.5-10.1); CARBON DIOXIDE LEVEL 32 MMOL/L (20-31); CHLORIDE LEVEL 100 MMOL/L (98-107); CREATININE FOR GFR 0.51 MG/DL (0.55-1.30); GLOMERULAR FILTRATION RATE > 90.0 (>51); GLUCOSE, FASTING 107 MG/DL (60-100); POTASSIUM SERUM 3.6 MMOL/L (3.5-5.1); SODIUM LEVEL 138 MMOL/L (136-145); TOTAL PROTEIN 7.3 G/DL (5.7-8.2)
[2024-08-22 16:04] LABS: FREE T4 1.17 NG/DL (0.89-1.76); THYROID PEROXIDASE ANTIBODY 31 U/ML (<60.0); THYROID STIMULATING HORMONE 0.917 uIU/ML (0.55-4.78)
[2024-08-22 16:05] LABS: ESTRADIOL < 19.0 PG/ML; TOTAL 25(OH) VITAMIN D 56.4 NG/ML (20.0-100.0)
[2024-08-22 16:06] LABS: PROGESTERONE 1.43 NG/ML; VITAMIN B12 LEVEL 299 PG/ML (211-911)
[2024-08-24 04:53] LABS: SEX HORMONE BINDING GLOBULIN 58 nmol/L (17-124)
[2024-08-24 05:07] LABS: DEHYDROEPIANDROSTERONE SULFATE 37 mcg/dL (5-167)
== END ==
LOC: M LAB 14:31
PROVIDERS: ATTEND Registered Nurse
DX: N95.1 Menopausal and female climacteric states (principal)

== ENCOUNTER → 2025-03-11 | Outpatient (CLI) | payer BC | LOC: M RAD 09:27 | DX: K76.89 Other specified diseases of liver (principal); R13.10 Dysphagia, unspecified; K76.0 Fatty (change of) liver, not elsewhere classified; R19.4 Change in bowel habit; Z86.0101 Personal history of adenomatous and serrated colon polyps; R14.0 Abdominal distension (gaseous); K57.92 Diverticulitis of intestine, part unspecified, without perforation or abscess without bleeding; N28.1 Cyst of kidney, acquired ==